=== PATIENT | male | born 1970 | race African-American/Black ===

== ENCOUNTER 2017-11-03 15:34 | Emergency (ER) | payer MEDICARE, MEDICAID ==
[~2017-11-03] VITALS: Ht 167.6 cm; Wt 86.0 kg
[2017-11-03 16:55] LABS: HEMATOCRIT. 33.8 % (42.0-52.0); HEMOGLOBIN. 10.9 g/dL (14.0-18.0); MEAN CORPUSCULAR HEMOGLOBIN 26.9 pg (28.0-32.0); MEAN CORPUSCULAR VOLUME 83.1 fL (80.0-94.0); PLATELET 362 x1000/uL (130-400); RED BLOOD CELL COUNT 4.06 mill/uL (4.7-6.1); RED CELL DISTRIBUTION WIDTH 14.7 % (11.6-14.6)
[2017-11-03 16:57] LABS: CHLORIDE 107 mEq/L (98-107)
[2017-11-03 17:01] LABS: ETHANOL BLOOD < 10 mg/dL
[2017-11-03 17:12] LABS: PLATELET ESTIMATE NORMAL
[2017-11-03 21:24] LABS: CLARITY URINE CLEAR (CLEAR); COLOR URINE YELLOW (YELLOW); KETONES URINE NEGATIVE (NEGATIVE); LEUKOCYTE ESTERASE URINE NEGATIVE (NEGATIVE); NITRITE URINE NEGATIVE (NEGATIVE); OCCULT BLOOD URINE NEGATIVE (NEGATIVE); PROTEIN URINE NEGATIVE (NEGATIVE)
[2017-11-03 21:42] LABS: *AMPHETAMINES SCREEN URINE NEGATIVE (NEGATIVE); *BARBITURATES SCREEN URINE NEGATIVE (NEGATIVE); *BENZODIAZEPINES SCREEN URINE NEGATIVE (NEGATIVE); *COCAINE SCREEN URINE NEGATIVE (NEGATIVE); METHADONE URINE SCREEN NEGATIVE (NEGATIVE)
[2017-11-03 21:43] LABS: CANNABINOID URINE SCREEN NEGATIVE (NEGATIVE); OPIATES URINE SCREEN NEGATIVE (NEGATIVE); PHENCYCLIDINE URINE SCREEN NEGATIVE (NEGATIVE)
[2017-11-04 00:40] LABS: CHLORIDE 107 mEq/L (98-107)
[2017-11-04 04:14] VITALS: BP 123/66
== END 2017-11-04 05:10 | disposition home or self-care (01) ==
LOC: ER 15:34
DX: R06.02 Shortness of breath (principal); B85.2 Pediculosis, unspecified
CPT/HCPCS: 36415; 71045; 80048; 80053; 80305; 81003; 83880; 84484; 85025; 93005; 99285; G0482